=== PATIENT | female | born 1990 | race Caucasian/White ===

== ENCOUNTER 2020-02-29 21:05 | Outpatient (CLI) | payer SELFPAY ==
[~2020-02-29] VITALS: Ht 167.6 cm; Wt 94.1 kg
--- NOTE | 2020-02-29 20:07 | NUR ---
2007- PT AMBULATORY TO ROOM LR 5 COMPLAINING OF VAGINAL BLEEDING, CHANGED INTO GOWN. 2010- EFM X2 APPLIED, VSS, NEGATIVE COVID SCREENING. PT STATES SHE HAD AN EPISODE OF VAGINAL BLEEDING AFTER BOWEL MOVEMENT. STATES SHE IS POSITIVE IT WAS VAGINAL AND NOT RECTAL. WAS BRIGHT RED ON TOILET PAPER. HAS SLOWED DOWN TO SPOTTING NOW. SHE STATES SHE HAD MINIMAL AMOUNT ON TOILET PAPER HERE IN LDR. DENIES CONTRACTIONS, LEAKING FLUID. STATES SHE IS FEELING BABY MOVE. 2019- DR MORALES AT DESK. UPDATED ON PT HISTORY AND PRESENTING COMPLAINT. ORDER FOR VAGINAL EXAM, REACTIVE 20MIN STRIP, AND THEN CAN DISMISS HOME. 2024- REPORT OFF TO CHARGE NURSE.
--- NOTE | 2020-02-29 20:25 | NUR ---
Report received on labor check. 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 Pt states last time she went to bathroom bleeding has decreased and there was barely any blood noted. Pt reports good movement. Denies feeling contractions. SVE FT/20/-2, bloody show noted on exam glove, light tinged. Assessment completed. Plan of care explained to pt. Questions answered.
[2020-02-29 20:30] VITALS: BP 127/76; PULSE 96
--- NOTE | 2020-02-29 20:40 | NUR ---
updated on pts status. See physican notification. at nurses station reviewing FHR strip. 2119: updated on pt. See physican notification. New order received. Pt updated on new plan of care. Denies questions at this time 2136: SVE unchanged. Small amount of bloody show noted on exam glove, less then last exam. 2155: Pt off monitors and to change clothes. 2204: Discharge instructions given to pt and who verbalize understanding. Pt denies questions at this time. Pt ambulatory off unit with .
[~2020-02-29 21:05] MED LIST: GLUCOPHAGE500 MG/TAB PO; PRENATAL MVI PO
[2020-02-29 21:30] VITALS: BP 119/66; PULSE 98
[2020-02-29 21:56] VITALS: TEMP 98.4
== END 2020-02-29 22:05 | disposition home or self-care (01) ==
LOC: LDRO 21:05 → LDR 21:44 → LDRO 21:44 → LDR 21:44 → LDRO 22:05
DX: O46.93 Antepartum hemorrhage, unspecified, third trimester (principal); Z3A.29 29 weeks gestation of pregnancy
CPT/HCPCS: OP

== ENCOUNTER 2020-04-16 11:06 | Outpatient (CLI) | payer OTHER ==
[~2020-04-16] VITALS: Ht 167.6 cm; Wt 97.7 kg
--- NOTE | 2020-04-16 11:10 | NUR ---
Patient ambulatory to LR3, changed into gown, FHR/TOCO monitors placed and explained. Patient sent over from the office due to tachycardia. Patient denies any regular contractions/vaginal bleeding/leakinig of fluid/decreased movement. Plan of care discussed. Assessment completed and questions answered. 1125: Lab at bedside drawing blood.
[2020-04-16 11:30] VITALS: BP 127/75; PULSE 94; TEMP 98.4
[2020-04-16 11:37] LABS: COLLECTION METHOD CLEAN CATCH
[2020-04-16 11:41] LABS: BASO % 0.4 % (0.0-2.0); EOS # 0.1 (0.0-0.7); EOS % 0.5 % (0-4.0); GRAN # 8.1 (1.4-6.5); GRAN % 72.9 % (42.2-75.2); HEMATOCRIT 38.4 % (37.0-47.0); HEMOGLOBIN 12.7 g/dl (12.5-16.0); LYMPH # 1.9 (1.2-3.4); LYMPH % 16.6 % (20.0-51.0); MEAN CELL VOLUME 86 fl (80.0-100.0); MEAN CORPUSCULAR HEMOGLOBIN 28 pg (27.0-31.0); MEAN CORPUSCULAR HGB CONC 33 g/dl (33.0-37.0); MEAN PLATELET VOLUME 10.3 fl (7.4-10.4); MONO % 8.5 % (1.7-9.3); PLATELET COUNT 256 K/mm3 (130-400); RED BLOOD COUNT 4.48 M/mm3 (4.10-5.30); REDCELL DISTRIBUTION WIDTH-CV 13.4 % (11.5-14.5)
[2020-04-16 11:45] LABS: MUCOUS Present /lpf; PH 6 (5-8); URINE APPEARANCE Cloudy; URINE BACTERIA Rare /hpf; URINE BILIRUBIN Negative (NEGATIVE); URINE BLOOD Negative (NEGATIVE); URINE CALCIUM OXALATE CRYSTAL Present /hpf; URINE COLOR Yellow; URINE GLUCOSE 1+ (NEGATIVE); URINE KETONE Trace (NEGATIVE); URINE LEUKOCYTE ESTERASE 1+ (NEGATIVE); URINE NITRATE Negative (NEGATIVE); URINE PROTEIN(semi-quant) Negative (NEGATIVE); URINE UROBILINOGEN Negative (NEGATIVE)
[2020-04-16 11:50] LABS: ALBUMIN 3.3 gm/dL (3.5-5.0); BILIRUBIN,TOTAL 0.4 mg/dL (0.0-1.0); CALCIUM 8.6 mg/dL (8.4-10.2); CREATININE, serum 0.45 (0.52-1.25); POTASSIUM 4.1 mmol/L (3.4-5.0); TOTAL PROTEIN 6.6 gm/dL (6.4-8.2)
[2020-04-16 12:13] VITALS: BP 120/71; PULSE 93
[2020-04-16 12:20] LABS: THYROID STIMULATING HORMONE 2.21 uIU/mL (0.465-4.680)
--- NOTE | 2020-04-16 12:30 | NUR ---
Patient updated to plan of care. EFMs off, patient changes into clothes. Discharge instructions reviewed and return precautions given. Patient ambulatory off of unit at this time.
== END 2020-04-16 12:30 | disposition home or self-care (01) ==
LOC: LDRO 11:06
PROVIDERS: Obstetrics & Gynecology
DX: O36.8330 Maternal care for abnormalities of the fetal heart rate or rhythm, third trimester, not applicable or unspecified (principal); Z3A.25 25 weeks gestation of pregnancy

== ENCOUNTER 2020-04-30 07:03 | Inpatient (IN) | payer OTHER ==
[~2020-04-30] VITALS: Ht 167.6 cm; Wt 99.5 kg
[2020-04-30] VITALS (39 sets, daily range): BP systolic 95–143; BP diastolic 53–82; PULSE 86–131; TEMP 97.9–99.1
--- NOTE | 2020-04-30 07:10 | NUR ---
Pt. ambulatory to the floor with by her side. Oriented to room and changed into gown. Reports GFM, no ctx, no LOF and no bleeding. Vital signs taken, assessment completed, consents signed. EFM and TOCO on and tracing.
--- NOTE | 2020-04-30 08:20 | NUR ---
0815- DR. HOOK AT BEDSIDE FOR AROM. SVE -2. PROCEDURE EXPLAINED AND QUESTIONS ANSWERED. 0817- AROM, SMALL AMOUNT OF CLEAR, ODERLESS FLUID NOTED. EFM AND TOCO ON AND TRACING.
[2020-04-30 08:30] LABS: BASO % 0.4 % (0.0-2.0); EOS % 0.4 % (0-4.0); GRAN # 7.7 (1.4-6.5); HEMATOCRIT 38.4 % (37.0-47.0); HEMOGLOBIN 12.3 g/dl (12.5-16.0); LYMPH # 1.6 (1.2-3.4); LYMPH % 15.9 % (20.0-51.0); MEAN CELL VOLUME 85 fl (80.0-100.0); MEAN CORPUSCULAR HEMOGLOBIN 27 pg (27.0-31.0); MEAN CORPUSCULAR HGB CONC 32 g/dl (33.0-37.0); MEAN PLATELET VOLUME 10.7 fl (7.4-10.4); MONO # 0.8 (0.1-0.6); MONO % 7.5 % (1.7-9.3); PLATELET COUNT 248 K/mm3 (130-400); RED BLOOD COUNT 4.52 M/mm3 (4.10-5.30); REDCELL DISTRIBUTION WIDTH-CV 13.5 % (11.5-14.5)
--- NOTE | 2020-04-30 10:30 | NUR ---
1010- Pt. repositioned to RL. 1015- Pt. BP was 105/55 with a pulse of 101 1019- Pt. verbalized not feeling well and feeling lightheaded. BP noted to be 99/63 with pulse of 85. Patient HOB put down, cold cloth applied head. 1020- BP 91/56 with pulse 93 1021- BP 97/60 with pulse 81 1023- BP 88/49 with pulse of 77. Ephedrine given via IV. 1025- BP 87/54 with pulse of 86 1026- BP 95/53 with pulse of 92 1027- BP 95/55 with pulse of 94 1028- BP 88/52 with pulse of 100. Second dose of Ephedrine given via IV. 1030- BP 105/59 with pulse of 77. Pt. verbalized feeling a little better. 1032- BP 91/51 with pulse of 103. 1034- BP 99/58 with pulse of 97 1035- BP 96/54 with pulse of 104. Pt. verbalized feeling much better. 1040- BP 101/57 with pulse of 89 Will continue to monitor. Call light within reach.
--- NOTE | 2020-04-30 15:20 | NUR ---
1300- Pt. begins practice pushing with RN at bedside. 1310- Dr. Powers to the bedside to assess practice pushing. Provider remains on unit during entire pushing duration. Provider between labor rooms and/or at labor desk. 1430- Provider at bedside to assess pushing. 1 1450- Decision to use vacuum made by provider. Discussed with patient and answered questions and addressed concerns. [id number] Vacuum applied during contractions. Pressure released inbetween contractions. No pop-offs noted. 1503- VAVD by Dr. Powers of viable male . Infant to mothers abdomen. care assumed by Tony Troy RN. Pitocin turned off. 1508- of placenta. Pitocin turned on and placed on 333ml/hr per protocol. 1518- Provider red esdras straight cathed patient and reports 50ml output. Provider noted 2nd degree, and EBL of 300. 1520- Pt. cleaned up, bed put back together, ice pack placed, linens changed, vitals taken and recovery started.
[2020-05-01] VITALS: BP 113/65; PULSE 104; TEMP 98
[2020-05-01 04:40] VITALS: BP 128/75; PULSE 97; TEMP 98.2
[2020-05-01 07:15] VITALS: BP 117/73; PULSE 97; TEMP 97.8
[2020-05-01 07:25] LABS: BASO # 0.1 (0.0-0.2); BASO % 0.4 % (0.0-2.0); EOS % 0.2 % (0-4.0); GRAN # 12.7 (1.4-6.5); HEMOGLOBIN 10.6 g/dl (12.5-16.0); LYMPH # 1.8 (1.2-3.4); LYMPH % 11.3 % (20.0-51.0); MEAN CELL VOLUME 86 fl (80.0-100.0); MEAN CORPUSCULAR HEMOGLOBIN 28 pg (27.0-31.0); MEAN CORPUSCULAR HGB CONC 33 g/dl (33.0-37.0); MEAN PLATELET VOLUME 10.6 fl (7.4-10.4); MONO # 1.4 (0.1-0.6); MONO % 8.4 % (1.7-9.3); PLATELET COUNT 215 K/mm3 (130-400); RED BLOOD COUNT 3.74 M/mm3 (4.10-5.30); REDCELL DISTRIBUTION WIDTH-CV 13.7 % (11.5-14.5)
[2020-05-01] MEDS ORDERED: IBU600 MG PO (08:28)
[2020-05-01 14:35] VITALS: BP 126/73; PULSE 92; TEMP 98.2
== END 2020-05-01 16:50 | disposition home or self-care (01) | DRG 807 ==
LOC: OB 07:03 → LDR 07:03 → OB 17:54
PROVIDERS: ADMIT Obstetrics & Gynecology
PROC: 10D07Z6 Extraction of Products of Conception, Vacuum, Via Natural or Artificial Opening (ICD-10-PCS; principal; 2020-04-30)
PROC: 0KQM0ZZ Repair Perineum Muscle, Open Approach (ICD-10-PCS; 2020-04-30)
PROC: 3E033VJ Introduction of Other Hormone into Peripheral Vein, Percutaneous Approach (ICD-10-PCS; 2020-04-30)
PROC: 10907ZC Drainage of Amniotic Fluid, Therapeutic from Products of Conception, Via Natural or Artificial Opening (ICD-10-PCS; 2020-04-30)
DX: O45.93 Premature separation of placenta, unspecified, third trimester (principal); Z37.0 Single live birth; O75.81 Maternal exhaustion complicating labor and delivery; O70.1 Second degree perineal laceration during delivery; O99.284 Endocrine, nutritional and metabolic diseases complicating childbirth; E28.2 Polycystic ovarian syndrome; O26.893 Other specified pregnancy related conditions, third trimester; Z3A.37 37 weeks gestation of pregnancy
CPT/HCPCS: J2590; J2791; J2795; J7120